=== PATIENT | female | born 1990 | race Caucasian/White ===

== ENCOUNTER 2016-10-14 13:31 | Emergency (ER) | payer BC ==
[~2016-10-14] VITALS: Ht 177.8 cm; Wt 107.8 kg
[2016-10-14 13:37] VITALS: BP 161/118
== END 2016-10-14 15:25 | disposition home or self-care (01) ==
LOC: ED 15:04
DX: S16.1XXA Strain of muscle, fascia and tendon at neck level, initial encounter (principal); M54.12 Radiculopathy, cervical region; V43.52XA Car driver injured in collision with other type car in traffic accident, initial encounter; Y93.89 Activity, other specified; Y92.89 Other specified places as the place of occurrence of the external cause; Y99.8 Other external cause status
CPT/HCPCS: 72125; 99284